=== PATIENT | female | born 1940 | race Two or more races ===

== ENCOUNTER 2020-09-22 06:08 | Day surgery (SDC) | payer OTHER ==
[~2020-09-22 06:08] MED LIST: ACID REDUCER20 M1 PO; ADULT LOW DOSE81 M1 PO; AMODIPINE PO; HYDROCHLOROTHIA25 MG PO; LIB PO; LOSART PO; SIMVAST PO; TYLENOL325 MG PO; VITAMIN D310 MCG/1 M PO
[2020-09-22] MEDS ORDERED: ULTRAM50 MG PO (13:09)
[2020-09-22] MEDS ORDERED: TYLENOL ARTHRI650 MG PO (13:09)
[2020-09-22] MEDS ORDERED: MIRALAX17 GM PO (13:09)
== END 2020-09-22 16:20 | disposition home or self-care (01) ==
LOC: CIR.AMB 06:08
PROVIDERS: ATTEND Surgery
DX: K80.10 Calculus of gallbladder with chronic cholecystitis without obstruction (principal); Z20.828 Contact with and (suspected) exposure to other viral communicable diseases